=== PATIENT | female | born 1955 | race Caucasian/White ===

== ENCOUNTER 2016-12-19 12:20 | Emergency (ER) | payer BC, OTHER ==
[~2016-12-19] VITALS: Ht 162.6 cm; Wt 88.6 kg
[~2016-12-19 12:20] MED LIST: ATENOLOL25 MG PO; CALCIUM 500 MG1 EAC1 PO; COPAXONE20 MG/KIT SC; CRESTOR10 MG PO; ELAVIL50 MG PO; TOPAMAX50 MG PO
[2016-12-19] MEDS ORDERED: ATORVASTATIN CA40 MG PO (13:08)
[2016-12-19] MEDS ORDERED: COPAXONE40 MG/1 ML SC (13:09)
[2016-12-19] MEDS ORDERED: SUMATRIPTAN SU100 MG PO (13:10)
[2016-12-19] MEDS ORDERED: MELOXICAM15 MG PO ×2 (13:10→13:11)
[2016-12-19] MEDS ORDERED: VITAMIN B12 PO (13:12)
[2016-12-19] MEDS ORDERED: GLUCOSAMINE S1000 M3 PO (13:12)
[2016-12-19 16:11] LABS: HEMATOCRIT 44.9 % (36.0-46.0); MCH 30.2 PG (29.0-34.0); MCHC 32.5 G/DL (30.0-36.0); MCV 92.8 FL (83-99); MEAN PLAT.VOLUME 11.5 uM^3 (9.5-12.4); PLATELET COUNT 233 K/uL (156-360); RBC DIS.WIDTH-CV 14.1 % (11.8-14.6); RBC DIS.WIDTH-SD 48.3 % (39-53); RED BLOOD COUNT 4.84 M/uL (3.80-5.20); WHITE BLOOD COUNT 9.3 K/uL (4.1-10.2)
[2016-12-19 16:20] LABS: CHLORIDE 112 mEq/L (99-109); SODIUM 142 mEq/L (136-147)
[2016-12-19 16:22] LABS: GLUCOSE 94 mg/dL (70-99)
[2016-12-19 16:24] LABS: ANION GAP 12 MEQ/L (2-14)
[2016-12-19 16:26] LABS: GFR ESTIMATE (CALCULATED) > 59 mL/min/
[2016-12-19 16:27] LABS: UREA NITROGEN (BUN) 16 mg/dL (9-23)
[2016-12-19] MEDS ORDERED: TRAMADOL HCL50 MG PO (16:29)
[2016-12-19 16:46] VITALS: BP 123/75
== END 2016-12-19 16:47 | disposition home or self-care (01) ==
LOC: EME 12:20
PROVIDERS: Physician Assistant
PROC: 0SSGXZZ Reposition Left Ankle Joint, External Approach (ICD-10-PCS; principal; 2016-12-19)
PROC: 3E0234Z Introduction of Serum, Toxoid and Vaccine into Muscle, Percutaneous Approach (ICD-10-PCS; 2016-12-19)
DX: S82.492A Other fracture of shaft of left fibula, initial encounter for closed fracture (principal); S93.02XA Subluxation of left ankle joint, initial encounter; X50.1XXA Overexertion from prolonged static or awkward postures, initial encounter; W18.30XA Fall on same level, unspecified, initial encounter; Z23 Encounter for immunization; G35 Multiple sclerosis; E78.5 Hyperlipidemia, unspecified; I10 Essential (primary) hypertension; E66.9 Obesity, unspecified; Z68.33 Body mass index [BMI] 33.0-33.9, adult
CPT/HCPCS: 73590; 73610; 73630; 80048; 85027; 93005; 99281; 99284